=== PATIENT | male | born 1970 | race Caucasian/White ===

== ENCOUNTER 2017-03-16 12:14 | Emergency (ER) | payer SELFPAY ==
[~2017-03-16] VITALS: Ht 165.1 cm; Wt 90.0 kg
[2017-03-16 12:18] VITALS: Ht 165.1 cm; Wt 90.0 kg
[2017-03-16] MEDS ORDERED: ACETAMINOPHEN 500 MG TAB PO STA (13:48)
[2017-03-16 14:03] LABS: URINE BLOOD (Dip) POC Negative (NEGATIVE)
--- NOTE | 2017-03-16 14:04 | ERD ---
ER Documentation Chief Complaint Date/Time DATE: 03/16/17 TIME: 13:47 Chief Complaint from shauna mosquera due fever 105.3, has body aches HPI 46-year-old male previously healthy if referred by his primary care provider for fever and body aches. The patient presents to the ER brought in by his son complaining of 2 days with a progressive fever yesterday temperature 102.1 today to the doctor's office 105.3 he was given 800 mg of ibuprofen and the temperature went down to 102. Currently the patient complains of mild headache dull, 2 out of 10. The patient denies nausea vomiting, visual problems, no cough or upper respiratory symptoms, no abdominal pain, no dysuria, no skin rashes. No history of previous episodes no history of recent travel ROS All systems reviewed and are negative except as per history of present illness. Medications Home Meds Active Scripts Ibuprofen* (Motrin*) 600 Mg Tab, 600 MG PO Q8 for pain and fever for 5 Days, # 15 TAB Prov:REMY CALIX MD 03/16/17 Allergies Allergies: Coded Allergies: No Known Allergy (Unverified , 03/16/17) PMhx/Soc Medical and Surgical Hx: pt denies Medical Hx History of Surgery: Yes (APPENDIX) Anesthesia Reaction: No Hx Neurological Disorder: No Hx Respiratory Disorders: No Hx Cardiac Disorders: No Hx Psychiatric Problems: No Hx Miscellaneous Medical Probl: No Hx Alcohol Use: No Hx Substance Use: No Hx Tobacco Use: No Physical Exam Vitals Vital Signs Date Time Temp Pulse Resp B/P Pulse Ox O2 Delivery O2 Flow Rate FiO2 03/16/17 12:18 102.5 111 18 120/66 97 Physical Exam Const: [] Head: Atraumatic Eyes: Normal Conjunctiva ENT: Normal External Ears, Nose and Mouth. Neck: Full range of motion..~ No meningismus. Resp: Clear to auscultation bilaterally Cardio: Regular rate and rhythm, no murmurs Abd: Soft, non tender, non distended. Normal bowel sounds Skin: No petechiae or rashes Back: No midline or flank tenderness Ext: No cyanosis, or edema Neur: Awake and alert Psych: Normal Mood and Affect Results 24 hrs Laboratory Tests Test 03/16/17 14:11 Bedside Urine pH (LAB) 6.0 Bedside Urine Protein (LAB) Negative Bedside Urine Glucose (UA) Negative Bedside Urine Ketones (LAB) Negative Bedside Urine Blood Negative Bedside Urine Nitrite (LAB) Negative Bedside Urine Leukocyte Esterase (L Negative Current Medications Medications (Trade) Dose Ordered Sig/Rene Route PRN Reason Start Time Stop Time Status Last Admin Dose Admin Acetaminophen (Tylenol Tab) 500 mg ONCE STAT PO 03/16/17 13:48 03/16/17 13:51 DC 03/16/17 13:57 Procedures/MDM .Fever: Differential diagnoses include viral infection, bacterial infection, malignancy, medication induced. Physical exam in normal limits, fever is responding to medications. Most likely viral infection Departure Diagnosis: Primary Impression: Viral infection Additional Impression: Fever Fever type: unspecified Qualified Code: R50.9 - Fever, unspecified fever cause Condition: Stable REMY CALIX MD Mar 16, 2017 14:03
[2017-03-16] MEDS ORDERED: IBUP-1542 PO (14:08)
== END 2017-03-16 14:36 | disposition home or self-care (01) ==
LOC: FTE 12:14
DX: B34.9 Viral infection, unspecified (principal)
CPT/HCPCS: 81003; 99282

== ENCOUNTER 2017-03-19 17:12 | Emergency (ER) | payer MEDICAID ==
[~2017-03-19] VITALS: Ht 157.5 cm; Wt 83.5 kg
[~2017-03-19 17:12] MED LIST: IBUP-1542 PO
[2017-03-19 17:14] VITALS: Ht 157.5 cm; Wt 83.5 kg
--- NOTE | 2017-03-19 18:39 | ERD ---
ER Documentation Chief Complaint Date/Time DATE: 03/19/17 TIME: 18:38 Chief Complaint Complains of a fever x 3 days HPI This is a 46-year-old male presents to the ER with a fever for the last 3 days. Patient also has a cough and a sore throat. He denies any chest pain or shortness of breath. Patient denies any ear pain. He denies any abdominal pain. He does not have any nausea vomiting or diarrhea. He denies any urinary frequency or dysuria. Patient has been taking ibuprofen for his fever, which helps, however the fever always returns. She has not traveled anywhere, and there are no sick contacts at home. He did not get his influenza vaccination this year. ROS 12 point review of systems was done, all negative except per HPI. Medications Home Meds Active Scripts Promethazine Hcl* (Promethazine Hcl* Syrup) 6.25 Mg/5 Ml Syrup, 12.5 MG PO Q6H Y for COUGH for 3 Days, ML Prov:CARY AQUINO 03/19/17 Azithromycin* (Zithromax*) 250 Mg Tablet, 250 MG PO .ZPACK DIRECTED, #6 TAB TAKE 500 MG (2 TABS) THE FIRST DAY THEN 250 MG (1 TAB) DAYS 2-5 Prov:CARY AQUINO 03/19/17 Ibuprofen* (Motrin*) 600 Mg Tab, 600 MG PO Q8 for pain and fever for 5 Days, # 15 TAB Prov:REMY CALIX MD 03/16/17 Allergies Allergies: Coded Allergies: No Known Allergy (Unverified , 03/16/17) PMhx/Soc Medical and Surgical Hx: pt denies Medical Hx History of Surgery: Yes (APPENDIX) Anesthesia Reaction: No Hx Neurological Disorder: No Hx Respiratory Disorders: No Hx Cardiac Disorders: No Hx Psychiatric Problems: No Hx Miscellaneous Medical Probl: No Hx Alcohol Use: No Hx Substance Use: No Hx Tobacco Use: No Physical Exam Vitals Vital Signs Date Time Temp Pulse Resp B/P Pulse Ox O2 Delivery O2 Flow Rate FiO2 03/19/17 19:22 98.0 79 18 122/70 99 Room Air 03/19/17 17:14 97.7 87 20 127/75 98 Physical Exam GENERAL: The patient is well-developed, well-nourished, in no acute distress. NECK: Cervical spine is non tender with no step off. Supple, no nuchal rigidity HEENT: Atraumatic. Pupils equal, round and reactive to light. Extraocular muscles are grossly intact. Conjunctivae pink, no discharge. Bilateral tympanic membranes are clear with no evidence of erythema, effusion or dulling of the light reflex. Tonsilar erythema with no exudates or uvular deviation. Clear rhinorrhea. RESPIRATORY: Clear to auscultation bilaterally. There are no rales, wheezes or rhonchi. HEART: Regular rate and rhythm. No murmurs, clicks, rubs or gallops. EXTREMITIES: No clubbing or cyanosis. Full range of motion. Grossly neurovascularly intact. NEUROLOGIC: Alert and oriented. Cranial nerves II through XII are intact. SKIN: There is no rash. The skin is warm and dry. Results 24 hrs [place] [id number] Rad[facility] Main Line: [phone] DIAGNOSTIC IMAGING REPORT Patient: TORREY URBANO : 1970 Age: 46 Sex: M MR #: [id number] DOS: 03/19/17 0000 Ordering MD: CARY AQUINO. PA-C Location: [facility] Room/Bed: PROCEDURE: XR Chest. CLINICAL INDICATION: Cough. TECHNIQUE: Single frontal view of the chest. COMPARISON: None. FINDINGS: The cardiomediastinal silhouette is within normal limits. Left mid lung and lung base air space disease suggesting pneumonia in setting of cough. No signs of pleural fluid or pneumothorax are seen. The osseous structures and soft tissues are unremarkable. IMPRESSION: Left mid lung and lung base pneumonia. RPTAT: [facility] Physician Milady Date Time Electronically viewed and signed by Physician Milady on 03/19/2017 18:59 RS/ CC: CARY AQUINO Procedures/MDM [address] elevation or T-wave inversion. This EKG was read by my supervising physician Dr. Mills this is a 46-year-old male presents to the ER with cough, sore throat, fever for the last 3 days. Patient does have pneumonia. He will be treated with azithromycin and promethazine. Is not hypoxic or in any respiratory distress and he is afebrile here in the ER. He is stable for outpatient follow-up. Patient is to follow-up with his primary care doctor within 1-2 days return to ER sooner if symptoms worsen. My medical decision making shared with the patient he understands and agrees with plan. Departure Diagnosis: Primary Impression: Pneumonia Condition: Stable CARY AQUINO Mar 19, 2017 18:39
--- NOTE | 2017-03-19 18:59 | RADRPT ---
PROCEDURE: XR Chest. CLINICAL INDICATION: Cough. TECHNIQUE: Single frontal view of the chest. COMPARISON: None. FINDINGS: The cardiomediastinal silhouette is within normal limits. Left mid lung and lung base air space dise ase suggesting pneumonia in setting of cough. No signs of pleural fluid or pneumothorax are seen. Th e osseous structures and soft tissues are unremarkable. IMPRESSION: Left mid lung and lung base pneumonia. RPTAT: [facility] Physician Milady Date Time Electronically viewed and signed by Physician Milady on 03/19/2017 18:59 RS/
[2017-03-19] MEDS ORDERED: AZIT250T94 PO (19:10)
[2017-03-19] MEDS ORDERED: PROM6.25 PO (19:11)
[2017-03-19 19:22] VITALS: BP 122/70; PULSE 79; RESP 18; TEMP 98
== END 2017-03-19 19:24 | disposition home or self-care (01) ==
LOC: FTE 17:12
DX: J18.9 Pneumonia, unspecified organism (principal); R07.9 Chest pain, unspecified
CPT/HCPCS: 71010; 87400; 93005; Z7502